=== PATIENT | male | born 1990 | race Caucasian/White ===

== ENCOUNTER 2021-09-01 22:58 | Emergency (ER) | payer SELFPAY ==
[~2021-09-01] VITALS: Ht 167.6 cm; Wt 73.4 kg
[2021-09-01] MEDS ORDERED: KETOROLAC 60MG/2ML VIAL IM ONE (23:30)
[2021-09-01] MEDS ORDERED: METHOCARBAMOL 500MG TABLET PO ONE (23:30)
[2021-09-02] MEDS ORDERED: METH-773 MT (01:36)
[2021-09-02] MEDS ORDERED: NAPR-681 MT (01:36)
[2021-09-02 02:19] VITALS: BP 118/75
== END 2021-09-02 02:23 | disposition home or self-care (01) ==
LOC: ER 23:51
DX: S46.811A Strain of other muscles, fascia and tendons at shoulder and upper arm level, right arm, initial encounter (principal); M54.50 Low back pain, unspecified; X58.XXXA Exposure to other specified factors, initial encounter; Y93.89 Activity, other specified; Y92.89 Other specified places as the place of occurrence of the external cause; Y99.8 Other external cause status; M79.18 Myalgia, other site
CPT/HCPCS: 96372; 99283; J1885